=== PATIENT | male | born 1960 | race Caucasian/White ===

== ENCOUNTER 2017-05-04 12:21 | Observation (INO) | payer MEDICAID ==
[~2017-05-04] VITALS: Ht 177.8 cm; Wt 125.3 kg
[2017-05-04] MEDS ORDERED: IV NORMAL SALINE 1,000ML 1,000 ML IV SCH ×2 (13:10→14:53)
--- NOTE | 2017-05-04 13:30 | EKG ---
[address] [address] Test Date: 2017-05-04 Test Time: 13:26:37 Pat Name: CRISTIAN TAN Department: Room: Gender: M [employer]man: : 1960 Requested By: GAYATRI MORENO Order Number: [id number] Reading MD: George Doran MD Measurements Intervals [place] Rate: 72 P: 0 NM: 198 QRS: -30 QRSD: 90 T: -46 QT: 394 QTc: 433 Interpretive Statements SINUS RHYTHM LEFT AXIS LAFB Electronically Signed On 05-19-2017 9:33:36 CDT by George Doran MD
--- NOTE | 2017-05-04 13:32 | PHYS DOC ---
General Chief Complaint: MULTIPLE COMPLAINTS Stated Complaint: MULTIPLE COMPLAINTS Time Seen by MD: 13:09 Source: patient Exam Limitations: no limitations Problems: History of Present Illness Initial Comments 57-year-old male who comes private auto complaining of uncontrolled diabetes and elevated glucose. 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 He says that over the past several days he's been extremely thirsty, initially he was urinating a great deal but now has had little urine output the past 2 days. He says some blurred vision and a feeling of general weakness and heaviness, some dyspnea on exertion and nausea. Denies chest pain or dyspnea at rest, no vomiting diaphoresis or focal neurologic deficits. Earlier today he was feeling so badly that he pulled the truck over at the side of the highway to rest. Shortly thereafter law enforcement pulled up to do a safety check on his parked truck and upon finding him called local EMS. Local EMS advised that his glucose was dangerously high however the patient didn't want to leave his truck and tractor on the side of the road so he refused transport and instead chose to drive himself to this emergency department. On arrival his vital signs are stable, he says that a year ago his primary care doctor back in [place] told him he needed to be on oral medications for diabetes however he refused at that time. He states that he's been trying to watch his diet which apparently hasn't gone very well. Timing/Duration: unsure Severity: severe Modifying Factors: worse with eating, improves with medication Associated Symptoms: diaphoresis, headaches, malaise, nausea/vomiting, shortness of breath, weakness, other Allergies: Coded Allergies: No Known Drug Allergies (Unverified , 05/04/17) Past Medical History Medical History: diabetes, hypertension Surgical History: noncontributory Social History Smoker: non-smoker Alcohol: none Drugs: none Review of Systems Constitutional: see HPI, denies chills, denies fever EENTM: see HPI, denies eye pain, blurred vision, denies double vision, denies ear pain, denies nose pain, denies throat pain, denies throat swelling, denies mouth swelling, other (dry mouth) Respiratory: see HPI, denies cough, denies stridor, denies wheezing Cardiovascular: denies chest pain, denies palpitations, denies syncope Gastrointestinal: see HPI, abdominal pain, denies constipation, denies diarrhea , nausea, denies vomiting Genitourinary: see HPI Musculoskeletal: denies back pain, denies joint swelling, denies neck pain Psychiatric/Neurological: see HPI Hematologic/Lymphatic: denies blood clots, denies easy bleeding, denies easy bruising Physical Exam General Appearance: no apparent distress, obese Eyes: bilateral eye normal inspection, bilateral eye PERRL, bilateral eye EOMI Ear, Nose, Throat: hearing grossly normal, normal ENT inspection (very dry mucous membranes), normal pharynx Neck: non-tender, supple Respiratory: normal breath sounds, no respiratory distress Cardiovascular: normal peripheral pulses, regular rate, rhythm Gastrointestinal: normal bowel sounds, non tender, soft Back: no CVA tenderness, no vertebral tenderness Extremities: normal range of motion, non-tender, normal inspection, no pedal edema, no calf tenderness Neurologic/Psychiatric: greens picker II-XII nml as tested, no motor/sensory deficits, alert, normal mood/affect, oriented x 3 Skin: pallor (poor turgor) Orders, Labs, Meds EKG: Sinus rhythm 72 bpm, some left axis deviation no ST segment elevation interpreted by me. Pertinent labs: Sodium 131, BUN 25, creatinine 1.1, fingerstick blood sugar 435 , serum glucose 410 Patient received 10 units of regular insulin intravenously and 2 back to back 1 L normal saline IV boluses. Recheck of glucose 1 hour after insulin via fingerstick 290. At that point the patient's color had improved greatly and he stated all of his symptoms were beginning to improve. Denied any new or progressive symptoms. I discussed the need for inpatient observation and he is agreeable. I discussed the patient with supervisor home economics hospitalist Dr. Petty who accepts inpatient telemetry admission. He requests Amaryl 2 mg daily as well as Glucophage 500 mg twice daily to get the patient started on oral medications while also following insulin sliding scale and checking hemoglobin A1c. Patient to receive diabetic teaching in anticipation of discharge. Departure Disposition: ADMITTED INPATIENT Diagnosis: uncontrolled DM, hyperglycemia, hypovolemia Condition: IMPROVED GAYATRI MORENO DO May 04, 2017 13:32
[2017-05-04 13:50] LABS: BILIRUBIN,URINE NEG (NEG); CLARITY,URINE CLEAR; COLOR,URINE YELLOW; GLUCOSE,URINE 500 mg/dL (NEG); NITRITE,URINE NEG (NEG); UROBILINOGEN,URINE 0.2 mg/dL (0.2 mg/dL)
[2017-05-04 13:51] LABS: BACTERIA,URINE FEW /HPF (0-FEW); SQUAMOUS EPITHELIAL CELL,UR OCC /LPF
[2017-05-04 13:52] LABS: BASO # 0.1 x10^3/uL (0.0-0.2); BASO % 1 % (0-3); EOS % 0 % (0-3); HEMATOCRIT 47.3 % (39.0-53.0); LYMPH # 1.9 x10^3/uL (1.0-4.8); LYMPH % 21 % (24-48); MEAN CORPUSCULAR HEMOGLOBIN 30 pg (25-35); MEAN CORPUSCULAR HGB CONC 34 g/dL (31-37); MEAN CORPUSCULAR VOLUME 89 fL (79-100); MONO # 0.7 x10^3/uL (0.0-1.1); MONO % 8 % (0-9); NEUT # 6.6 x10^3uL (1.8-7.7); NEUT % 70 % (31-73); PLATELET COUNT 199 x10^3/uL (140-400); RED BLOOD COUNT 5.32 x10^6/uL (4.30-5.70); RED CELL DISTRIBUTION WIDTH 13.5 % (11.5-14.5); WHITE BLOOD COUNT 9.3 x10^3/uL (4.0-11.0)
[2017-05-04] MEDS ORDERED: ONDANSETRON PF 4 MG/2 ML VIAL. IV ONE (14:00)
[2017-05-04 14:12] LABS: ALBUMIN 3.5 g/dL (3.4-5.0); ALBUMIN/GLOBULIN RATIO 0.9 (1.0-1.7); CALCIUM 8.9 mg/dL (8.5-10.1); CREATININE 1.1 mg/dL (0.7-1.3); GFR 69.5; POTASSIUM 4.5 mmol/L (3.5-5.1); TOTAL BILIRUBIN 0.7 mg/dL (0.2-1.0); TOTAL PROTEIN 7.2 g/dL (6.4-8.2)
[2017-05-04] MEDS ORDERED: INSULIN REGULAR 100 UNIT/ML 10ML VIAL. IV ONE (14:30)
--- NOTE | 2017-05-04 15:00 | NUR ---
The patient, CRISTIAN TAN, 57 y/o, M admitted by JOÃO IZAGUIRRE MD, was given written information regarding hospital policies, unit procedures and contact persons. Valuables were checked and left in room. Pt alert and oriented x3 and able to make needs known. Plan is to start IV fluids and SC insulin. Pt will start on oral blood sugar medications, information given to patient. Nurse sat with patient and education patient on hyperglycemia and type 2 diabetes, also about new medications and what to expect on discharge. Will continue to monitor blood sugars throughout shift. Pt able to verbalize POC, will continue to monitor.
[2017-05-04] MEDS ORDERED: ACETAMINOPHEN 325 MG TABLET PO PRN (16:30)
[2017-05-04] MEDS ORDERED: ONDANSETRON PF 4 MG/2 ML VIAL. IV PRN (16:30)
[2017-05-04] MEDS ORDERED: metFORMIN 500 MG TABLET PO SCH (17:15)
[2017-05-04] MEDS ORDERED: DEXTROSE 50% 25 GM / 50ML DISP.SYRIN. IV PRN (17:15)
[2017-05-04 17:19] VITALS: BP 125/82
[2017-05-04] MEDS ORDERED: ERGO500027 PO (17:26)
[2017-05-04] MEDS ORDERED: ACEB200C PO (17:26)
[2017-05-04] MEDS ORDERED: LISI10TA2 PO (17:26)
[2017-05-04] MEDS ORDERED: ASPI81TA50 PO (17:26)
[2017-05-04] MEDS ORDERED: CLON0.5T3 PO (17:26)
[2017-05-04] MEDS ORDERED: ASCO500T2 PO (17:26)
[2017-05-04] MEDS ORDERED: VORT20TA PO (17:26)
[2017-05-04] MEDS: IV NORMAL SALINE 1,000ML 1,000 ML IV SCH ×2 (18:24→21:26)
[2017-05-04] MEDS: INSULIN ASPART 300 UNITS/3 ML INSULN.PEN SQ SCH ×2 (18:25→21:23)
[2017-05-04] MEDS: metFORMIN XR 500 MG TAB.ER.24H PO SCH (18:30)
[2017-05-04] MEDS: GLIMEPIRIDE 2 MG TABLET PO SCH (18:30)
[2017-05-04 21:17] VITALS: BP 129/73
[2017-05-04] MEDS: LISINOPRIL 10 MG TABLET PO SCH (21:24)
[2017-05-04] MEDS: clonazePAM 0.5 MG TABLET PO SCH (21:25)
[2017-05-05 03:07] LABS: HEMOGLOBIN A1C 11.1 % (4.8-5.6)
[2017-05-05] MEDS: IV NORMAL SALINE 1,000ML 1,000 ML IV SCH ×2 (05:50→08:48)
[2017-05-05 05:55] VITALS: BP 128/73
[2017-05-05 06:41] LABS: BASO % 1 % (0-3); EOS # 0.1 x10^3/uL (0.0-0.7); EOS % 2 % (0-3); HEMATOCRIT 41.4 % (39.0-53.0); HEMOGLOBIN 14.1 g/dL (13.0-17.5); LYMPH # 2.3 x10^3/uL (1.0-4.8); LYMPH % 37 % (24-48); MEAN CORPUSCULAR HEMOGLOBIN 30 pg (25-35); MEAN CORPUSCULAR HGB CONC 34 g/dL (31-37); MEAN CORPUSCULAR VOLUME 90 fL (79-100); MONO # 0.6 x10^3/uL (0.0-1.1); MONO % 10 % (0-9); NEUT # 3.1 x10^3uL (1.8-7.7); NEUT % 50 % (31-73); PLATELET COUNT 152 x10^3/uL (140-400); RED BLOOD COUNT 4.63 x10^6/uL (4.30-5.70); RED CELL DISTRIBUTION WIDTH 13.7 % (11.5-14.5); WHITE BLOOD COUNT 6.2 x10^3/uL (4.0-11.0)
[2017-05-05 06:59] LABS: ALBUMIN 2.7 g/dL (3.4-5.0); ALBUMIN/GLOBULIN RATIO 0.9 (1.0-1.7); CALCIUM 7.7 mg/dL (8.5-10.1); GFR 77.6; POTASSIUM 4.3 mmol/L (3.5-5.1); TOTAL BILIRUBIN 0.3 mg/dL (0.2-1.0); TOTAL PROTEIN 5.6 g/dL (6.4-8.2)
[2017-05-05] MEDS: ASCORBIC ACID 500 MG TABLET PO SCH (07:52)
[2017-05-05] MEDS: clonazePAM 0.5 MG TABLET PO SCH ×2 (07:52→21:00)
[2017-05-05] MEDS: metFORMIN XR 500 MG TAB.ER.24H PO SCH ×2 (07:52→16:43)
[2017-05-05] MEDS: ASPIRIN ENTERIC COATED 81 MG TABLET.DR. PO SCH (07:52)
[2017-05-05] MEDS: GLIMEPIRIDE 2 MG TABLET PO SCH ×2 (07:52→16:43)
[2017-05-05] MEDS: LISINOPRIL 10 MG TABLET PO SCH ×2 (07:53→21:00)
[2017-05-05] MEDS: ATENOLOL 50 MG TABLET PO SCH (07:53)
[2017-05-05] MEDS: INSULIN ASPART 300 UNITS/3 ML INSULN.PEN SQ SCH ×4 (08:00→21:02)
[2017-05-05] MEDS ORDERED: GLIMEPIRIDE 2 MG TABLET PO SCH (08:00)
[2017-05-05] MEDS ORDERED: NON FORMULARY ITEM (Vortioxetine Hydrobromide (Trintellix) 20 MG) PO SCH (09:00)
--- NOTE | 2017-05-05 10:13 | NUR ---
Pt is alert and oriented. Complains of feeling tired. Denies pain. Asking questions about insulin, appears eager to learn about diabetes. Will continue to monitor.
[2017-05-05 10:54] VITALS: BP 113/74
--- NOTE | 2017-05-05 14:02 | HP ---
ADMIT DATE: 05/04/2017 HISTORY OF PRESENT ILLNESS: The patient is a 57-year-old male patient, who came to the Emergency Room driving his own vehicle complaining of uncontrolled diabetes and markedly elevated glucose. 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 He says that over the past several days, he has been extremely thirsty, initially he was urinating a great deal, but now has little urine output, in the last 2 days and has also some blurred vision and feeling of general weakness and heaviness. He also complained of dyspnea on exertion and nausea, but denied any chest pain or dyspnea at rest; denied any vomiting or diaphoresis. Apparently, yesterday morning, he was feeling so badly that he pulled the truck at the side of the highway. Shortly thereafter, law enforcement ____ to do a safety check on his cage truck and upon finding him called local EMS. They advised that his glucose was dangerously high; however, the patient did not want to leave his truck and tractor on the side of the road. He refused transport and instead chose to drive himself to this Emergency Department and on arrival yesterday, his vital signs were stable. Apparently a year ago, his primary care physician in [place] has told him that he needed to be on oral medication for diabetes; however, he refused at that time. He stated that he has been trying to watch his diet. Apparently, he has not done a good job of that. Basically, on evaluation in the Emergency Room, it was found to be markedly elevated blood sugar of 435, although his anion gap was only 12. He has also dilutional hyponatremia and was started on IV fluid and we did start him also on oral hypoglycemic agent and admitted for further evaluation and treatment. PAST MEDICAL HISTORY: His past medical history is significant for hypertension and depression. He has also some kind of arrhythmia for which he is on beta-blockers, although he had stated that they have not told him that he has atrial fibrillation in particular. PAST SURGICAL HISTORY: Past surgical history is significant for cholecystectomy and 2 periumbilical hernia repair. ALLERGIES: He has no known drug allergies. MEDICATIONS: He is currently on following medications: He is on acebutolol 200 mg twice a day, ascorbic acid 500 mg once a day, aspirin 81 mg once a day, clonazepam 0.5 mg twice a day, vitamin D 50,000 units twice weekly, lisinopril 10 mg twice a day, and Trintellix 20 mg once a day. FAMILY HISTORY: He has 1 younger sister, who is healthy. His father at the age of 64 because of motor neuron disease. Mother is still alive and has hypertension. SOCIAL HISTORY: Single, never , has no children. Does not smoke, drink alcohol, or use any recreational drugs. REVIEW OF SYSTEMS: As per history of present illness. PHYSICAL EXAMINATION: GENERAL: On examining him, he looked well and was clearly in no apparent respiratory distress, pale, no jaundice, cyanosis, or thyromegaly. No jugular venous distention. No limb edema. VITAL SIGNS: Her heart rate was 77, blood pressure was 114/70, temperature was 98.2, respiratory rate was 18, and oxygen saturation was 97%. HEAD, EYES, EARS, NOSE AND THROAT: Showed normocephalic, atraumatic. NECK: Supple. HEART: Showed normal first and second heart sounds with no gallop, rub or murmur. CHEST: Clear to auscultation. No crepitation or rhonchi. ABDOMEN: Distended, soft, nontender. No guarding or rigidity. No organomegaly. Hernial orifice is intact. Bowel sounds normal. NEUROLOGIC: He is awake, alert, responding appropriately. All cranial nerves are intact. EXTREMITIES: He moves extremities without difficulty, ambulates without assistance or assistive devices. LABORATORY DATA: His lab work showed a serum sodium 131, potassium 4.5, chloride 95, bicarbonate 24, anion gap of 12, BUN 25, creatinine 1.1, estimated GFR was 69 mL per minute. His glucose was 435, calcium was 8.9. Total bilirubin, AST, ALT, alkaline phosphatase are slightly elevated. CK was 87. Beta natriuretic peptide was 50. Total protein was 7.2, albumin 3.5. Lipase was 88. His hemoglobin A1c was 11.1%, white cell count was 9300, hemoglobin 16, hematocrit 47, MCV 89, and platelet count 199,000. Urinalysis showed the urine was yellow, clear with the pH of 5, specific gravity 1.010. Urine protein was negative. The urine was negative for blood, nitrite and leukocyte esterase, 1-2 RBCs, 1-4 WBCs, very few bacteria. However, there was large amount of glucose and ketones. ASSESSMENT AND PLAN: So, in summary, this is a 57-year-old male patient, who was admitted with new onset type 2 diabetes. We will start him on 2 mg of Amaryl and 500 mg extended release metformin twice a day, and also sliding scale insulin, continue with IV fluid. I will monitor his blood sugar and decide the further management accordingly. JOÃO IZAGUIRRE MD DR: CAROL/ning JOB#: [id number] / [id number]
--- NOTE | 2017-05-05 15:10 | NUR ---
Pt takes trintellex, we do not have the med here or a substitute. Security went to patients vehicle and obtained medications. Meds are in medication room, pt is able to take own medication of trintellex.
[2017-05-05 15:36] VITALS: BP 119/75
[2017-05-05 20:22] VITALS: BP 129/68
[2017-05-05 23:13] VITALS: BP 162/82
--- NOTE | 2017-05-05 23:32 | PN ---
DATE: 05/05/2017 SUBJECTIVE: The patient is sitting on the edge of the bed comfortably in no apparent distress. He continued to complain of marked weakness; however, he denied any further episodes of nausea, vomiting or diarrhea. Denied any chest pain or shortness of breath. His blood sugar is slightly better controlled, although not optimally yet. PHYSICAL EXAMINATION: GENERAL: When I examined him, he looked pale, but no jaundice, cyanosis, or thyromegaly. No jugular venous distension, no edema. VITAL SIGNS: His heart rate was 71, blood pressure was 113/74, temperature was 97.5, respiratory rate 20, and oxygen saturation was 95% on room air. HEAD, EYES, EARS, NOSE AND THROAT: Showed normocephalic, atraumatic. NECK: Supple. HEART: Showed normal first and second heart sounds with no gallop, rub or murmur. CHEST: Clear to auscultation. No crepitation or rhonchi. ABDOMEN: Distended, soft, nontender. NEUROLOGIC: He is awake, alert, responding appropriately. Cranial nerves are intact. He moves extremities without difficulty. He ambulates without assistance or assistive devices. His intake over the last 24 hours was 2640. LABORATORY DATA: As of this morning showed a serum sodium 138, potassium 4.3, chloride 105, bicarbonate 27, anion gap of 6, BUN 22, creatinine 1, estimated GFR was 77 mL per minute. His glucose was 198, calcium was 7.7. Total bilirubin, AST, ALT, alkaline phosphatase were normal. Total protein was 5.6, albumin 2.7. ASSESSMENT AND PLAN: New onset type 2 diabetes, hypertension, depression. PLAN: to continue with Amaryl 2 mg twice a day as well as metformin 100 mg extended release twice a day. Continue with other medication. Continue with insulin sliding scale. I have had a lengthy discussion about the presentation, the changes in lifestyle and diet and explained to him that he has to obviously follow with his primary care physician to adjust the dose further. He probably might require more Amaryl and metformin. His symptoms will improve as the blood sugar gets better controlled. The plan is probably to discharge him home tomorrow. JOÃO IZAGUIRRE MD DR: CAROL/ning JOB#: [id number] / [id number]
[2017-05-06 05:18] VITALS: BP 96/58
[2017-05-06] MEDS: clonazePAM 0.5 MG TABLET PO SCH (08:08)
[2017-05-06] MEDS: metFORMIN XR 500 MG TAB.ER.24H PO SCH ×2 (08:08→17:03)
[2017-05-06] MEDS: ASCORBIC ACID 500 MG TABLET PO SCH (08:08)
[2017-05-06] MEDS: ASPIRIN ENTERIC COATED 81 MG TABLET.DR. PO SCH (08:09)
[2017-05-06] MEDS: GLIMEPIRIDE 2 MG TABLET PO SCH ×2 (08:09→17:03)
[2017-05-06] MEDS: INSULIN ASPART 300 UNITS/3 ML INSULN.PEN SQ SCH ×2 (08:14→12:04)
[2017-05-06] MEDS: ATENOLOL 50 MG TABLET PO SCH (08:50)
[2017-05-06] MEDS: LISINOPRIL 10 MG TABLET PO SCH (08:50)
[2017-05-06 11:25] VITALS: BP 131/81
[2017-05-06 15:28] VITALS: BP 132/80
[2017-05-06] MEDS ORDERED: METF500T9 PO (16:04)
[2017-05-06] MEDS ORDERED: GLIM1TAB PO (16:04)
--- NOTE | 2017-05-06 19:08 | DS ---
DATE OF DISCHARGE: 05/06/2017 HOSPITAL COURSE: The patient is a 57-year-old male patient who was basically admitted with new onset diabetes mellitus. His blood sugar was found to be extremely high on admission and in fact his blood sugar was 410 on admission, and we did start him on metformin extended release 500 mg twice a day and Amaryl 2 mg twice a day. His blood sugar is much improved, though not optimally, so it is now in the 200s. He lives in [place] and I explained we have multiple sessions for teaching about diabetes and I basically explained to him that his primary care physician should adjust his medication. I do want him to go into hypoglycemia and being aggressive with him while driving for a 1000 miles from here. PHYSICAL EXAMINATION: GENERAL: When I examined today, he looked well and was clearly in no apparent respiratory distress, pale, but no jaundice, cyanosis or thyromegaly. No jugular venous distention, edema and there is no jugular venous distention. No limb edema. VITAL SIGNS: His heart rate was 69, blood pressure was 132/80, temperature was 97.6, respiratory rate 20, and oxygen saturation was 94%. HEAD, EYES, EARS, NOSE AND THROAT: Showed normocephalic, atraumatic. NECK: Supple. HEART: Showed normal first and second heart sounds with no gallop, rub or murmur. CHEST: Clear to auscultation. No crepitation or rhonchi. ABDOMEN: Distended, soft, nontender. No guarding or rigidity. No organomegaly. All hernial orifices intact. Bowel sounds normal. NEUROLOGIC: He is awake, alert, responding appropriately. Cranial nerves intact. EXTREMITIES: He moves extremities without difficulty, ambulates without assistance or assistive devices. LABORATORY DATA: As of this morning showed that his serum sodium 138, potassium 4.3, chloride 105, bicarbonate 27, anion gap of 6, BUN 22, creatinine 1, estimated GFR was 77, glucose was 198, calcium was 7.7. Total bilirubin, AST, ALT, alkaline phosphatase were normal. Total protein 5.6, albumin 2.7. His triglycerides were high at 294. Total cholesterol 187, LDL cholesterol 104, VLDL was 58, and HDL cholesterol 25 and the ratio was 7. His white cell count was 6200, hemoglobin 14, hematocrit 41, MCV 90, and platelet count of [id number]. DISCHARGE MEDICATIONS: He was discharged home to continue on following medications: Glimepiride 2 mg twice a day, metformin extended release 500 mg twice a day. Continue acebutolol 200 mg twice a day, ascorbic acid 500 mg once a day, aspirin 81 mg once a day, clonazepam 0.5 mg twice a day, vitamin D2 50,000 units once a day, lisinopril 10 mg twice a day and Trintellix 20 mg once a day. FINAL DISCHARGE DIAGNOSES: New onset type 2 diabetes mellitus with severe hyperglycemia, hypertension, hyperlipidemia and depression. JOÃO IZAGUIRRE MD DR: CAROL/ning JOB#: [id number] / [id number]
[2017-05-07] MEDS ORDERED: CHOLECALCIFEROL (VITAMIN D3) 50,000 UNIT CAPSULE PO SCH (16:00)
== END 2017-05-06 17:45 | disposition home or self-care (01) ==
LOC: ER 12:21 → 1 SOUTH 15:58 → INTOOBSV 15:58
PROVIDERS: ADMIT Internal Medicine; ATTEND Internal Medicine
DX: E11.65 Type 2 diabetes mellitus with hyperglycemia (principal); E78.5 Hyperlipidemia, unspecified; F32.9 Major depressive disorder, single episode, unspecified; I10 Essential (primary) hypertension; Z82.49 Family history of ischemic heart disease and other diseases of the circulatory system
CPT/HCPCS: 36415; 80053; 80061; 81001; 82550; 82947; 83036; 83690; 83880; 84484; 85025; 93005; 96361; 96374; 96375; 99285; G0378; J1815; J2405; G0379; J7030